=== PATIENT | female | born 1990 | race Caucasian/White ===

== ENCOUNTER 2018-10-20 23:24 | Emergency (ER) | payer BC ==
--- NOTE | 2018-10-21 00:02 | RAD ---
FRONTAL RADIOGRAPH CHEST 10/20/18 COMPARISON: 09/25/18 HISTORY: Chest pain. FINDINGS: Lungs are clear. Heart and mediastinal contours are unremarkable. IMPRESSION: No acute findings. POS: [facility]
[2018-10-21 00:06] LABS: #Basophils 0.1 thou/uL (0.0-0.2); #Eosinphils 0.3 thou/uL (0.0-0.7); #Lymphocytes 3.9 thou/uL (1.20-3.40); #Monocytes 0.6 thou/uL (0.11-0.59); #Neutrophils 4.1 thou/uL (1.40-6.50); %Basophils 0.8 % (0.0-1.0); %Eosinophils 3.3 % (0.0-10.0); %Lymphocytes 43.1 % (21.0-51.0); %Neutrophils 45.7 % (42.0-75.0); Hemoglobin 13.2 g/dL (12.0-16.0); Mean Corpuscular HGB CONC 33.8 g/dL (32.0-36.0); Mean Corpuscular Hemoglobin 30.4 pg (27.0-31.0); Mean Corpuscular Volume 89.9 fL (78.0-98.0); Platelet Count 323 thou/uL (130-400); RBC Distribution Width 11.8 % (11.5-14.5); Red Blood Cell (RBC) Count 4.33 mill/uL (4.20-5.40); White Blood Cell (WBC) Count 8.9 thou/uL (4.8-10.8)
[2018-10-21 00:28] LABS: ALT (SGPT) 28 U/L (8-55); AST (SGOT) 25 U/L (5-34); Albumin 4.4 g/dL (3.5-5.0); Alkaline Phosphatase 56 U/L (40-150); Anion Gap 15 mmol/L (10-20); BUN (Urea Nitrogen) 16 mg/dL (7.0-18.7); Bilirubin, Total 0.2 mg/dL (0.2-1.2); Calc. Creatinine Clearance 0 mL/min (70-130); Calcium 9.9 mg/dL (7.8-10.44); Carbon Dioxide 22 mmol/L (22-29); Chloride 104 mmol/L (98-107); Estimated GFR-MDRD 70; Glucose 101 mg/dL (70-105); Lipase 19 U/L (8-78); Potassium 4.1 mmol/L (3.5-5.1); Protein, Total 7.4 g/dL (6.0-8.3); Sodium 137 mmol/L (136-145)
[2018-10-21 00:52] LABS: BHCG - Serum Negative (NEGATIVE); Pregs Control Background? CLEAR/WHITE (CLR/WHITE); Pregs Control Bar Appear? YES (CONTROL BAR)
[2018-10-21] MEDS ORDERED: Ketorolac Tromethamine 30 MG/ML VIAL ONE (02:13)
--- NOTE | 2018-10-21 09:23 | CT ---
PRELIMINARY REPORT/[facility]/EMERGENTY AFTER-HOURS PROCEDURE CT Angiography Chest With Contrast EXAM DATE/TIME: 10/21/2018 1:24 AM CLINICAL HISTORY: 27 years old, female; C/O intermittent left-sided chest pain onset 19:00 this pm radiating to left sh oulder, worse on inspiration, associated with diaphoresis. PT denies SOB, cough, headache, vision caryn nges. TECHNIQUE: Axial computed tomographic angiography images of the chest with intravenous contrast using CT angiogr aphy protocol. MIP reconstructed images were created and reviewed. COMPARISON: No relevant prior studies available. FINDINGS: Pulmonary arteries: The pulmonary arterial system is suboptimally opacified with I.V. contrast. While no definite central pulmonary emboli are appreciated, pulmonary emboli in the distal lobar and segme ntal branches cannot be excluded on the basis of this study. Contrast density measurement within the main pulmonary artery is 120 HU. Aorta: Normal. No aortic aneurysm. No aortic dissection. Lungs: No alveolar infiltrate. Pleural space: No pleural fluid collections. No pneumothorax. Heart: Trace anterior pericardial effusion. Mediastinum: Residual thymic tissue in the anterior superior mediastinum. Small hiatal hernia. Lymph nodes: No pathologically enlarged lymph nodes. Bones/joints: Unremarkable. No acute fracture. Soft tissues: Unremarkable. IMPRESSION: 1. Suboptimal contrast opacification of the pulmonary arterial sytem. No central pulmonary emboli are seen but more distal emboli cannot be excluded by this study. 2. Normal caliber thoracic aorta without aneurysm or dissection. 3. No alveolar infiltrate. 4. Small hiatal hernia. Thank you for allowing us to participate in the care of your patient. Dictated and Authenticated by: Elian Caceres MD 10/21/2018 2:00 AM Central Time ([place] & [place]) FINAL REPORT CT ARTERIOGRAM CHEST PERFORMED ON AN EMERGENCY BASIS: Date: 10/21/18 Time: 0126 hours HISTORY: Chest pain. Dyspnea. FINDINGS: Findings agree with the preliminary report by [facility]. While the pulmonary veins and aorta are well opac ified, there is poor opacification of pulmonary arteries. No central filling defects. Small hiatal he rnia. Small nonspecific low density lesion within the posterior segment of the right liver dome. POS: [facility]
[2018-10-21] MEDS ORDERED: ISOVUE-370 76%-LOCM 1 ML ONE (10:01)
== END 2018-10-21 02:32 | disposition home or self-care (01) ==
LOC: ERS 23:24
DX: L91.8 Other hypertrophic disorders of the skin (principal); D57.00 Hb-SS disease with crisis, unspecified
CPT/HCPCS: 36415; 71045; 71275; 80053; 83690; 84484; 84703; 85025; 85379; 93005; 96361; 96374; 99406; J1885